=== PATIENT | female | born 1960 ===

== ENCOUNTER 2021-07-26 15:02 | Outpatient (REF) | payer SELFPAY ==
--- NOTE | 2021-07-26 13:45 | PAPFT_PTH ---
PATIENT: Vani Black LOC: [facility]#:[id number] AGE/SX: 61/F ROOM: RE07/26/[address]: Shelli Angel : 1960 BED: DIS: 07/26/2021 SPEC #: [id number] RECD: 07/27/21 12:56 STATUS: STEFAN REQ #: [id number] DEE: 07/26/21 13:[address]: Shelli Angel DEPT: [facility] Cytology RECD BY: Carolynn Lin ENTERED: 07/27/21 12:57 SP TYPE: PAPFT OT DR: Unknown,Unknown Tissues: 1 - CX/ENDOCX FOR PAP SMEARS Procedures: PAP THIN PREP/[facility] Screening HPV DNA PROBE Comments: [id number]
== END 2021-07-26 15:03 | disposition home or self-care (01) ==
LOC: NCHCN 15:02
PROVIDERS: Visit Provider Nurse Practitioner Family
DX: Z12.4 Encounter for screening for malignant neoplasm of cervix (principal); Z11.51 Encounter for screening for human papillomavirus (HPV); Z00.00 Encounter for general adult medical examination without abnormal findings
CPT/HCPCS: 88142; 87624